=== PATIENT | female | born 1995 | race Caucasian/White ===

== ENCOUNTER 2019-10-21 12:30 | Outpatient (RCR) | payer OTHER, SELFPAY ==
--- NOTE | 2019-10-03 15:30 | OT.OP.EVAL ---
Visit Care Team Role Provider Type Rasheed Castillo Attending Provider Non-Staff Primary Care Provider Specialty: Medical Address: [address] [place] [address], [place], [address] Fax: Email: Occupational Therapy Initial Evaluation OT Outpatient Adult Evaluation Start: 10/15/19 17:10 Freq: Status: Active Protocol: Document 10/03/19 15:30 AMS (Rec: 10/15/19 17:53 AMS [email or web address]) General Information Visit Start Time 13:30 Visit Stop Time 14:18 Total Visit Minutes 48 Plan of Care Dates 10/03/19-11/29/19 Insurance Information - Eval Only Auth Treatment Setting Outpatient Care Note Type Initial Evaluation Referring Physician Rasheed Castillo MD Precautions Reason for referral: 23 y.o. female w/ chronic bilateral hand/wrist pain exacerbated by her work duties. Low suspicion for any bony or ligamentous pathology. Identification Confirmed Yes: Photo ID Previous Therapy/Therapies No History of Therapy N/A for current referral Therapy Pain Assessment When Pain Assessed pre- treat Pain Present Pain Reported Right Hand Scale Used see chart Goals Alf Goals 1. Cara will be modified independent with execution of home exercise program utilizing provided written and visual instructions from therapist. 2. Cara will be able to verbally identify 2 different home management strategies to address presenting symptoms (e .g., contrast baths). Assessment/Plan Patient Response Good Rehabilitation Potential Fair Treatment Assessment Patient is a 23 year-old right hand dominant female referred to outpatient OT by PCP secondary to chronic bilateral hand/wrist pain exacerbated by her work duties with low suspicion for any bony or ligamentous pathology. PMH: Significant for back pain and wisdom teeth removal. 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 Was recommended to take antiinflammatory med. Evaluation findings: Right hand dominant female who presents with pain predominantly of the right hand (5/10 on pain scale relative to right thumb, 4/10 on pain scale relative to radial and ulnar sides of the right wrist) w/ symptoms exacerbated by repetitive gripping and pinching of objects, including active use of personal cell phone; (-) education previously in re: utilization of joint protection principles; (-) use of splint/provision of splint ; pain/discomfort of R thumb w / Inga's Maneuver; (-) prior education re: joint protection principles and/or home management of symptoms utilizing contrast baths, et cetera. Outpatient OT is recommended to address symptoms utilizing conservative methods of treatment; d/t length of time that Cara has endured these symptoms recommend referral back to PCP to explore less conservative approaches to treatment. Home Exercise Program Initiated HEP. Education re: basic joint protection principles completed. Instructed in contrast baths and ice massage to address inflammation. Provided written and visual instructions for thumb ROM, including thumb extensor stretch. Discussed recommendations for splint; Cara to follow-up w/ her PCP. Comment 8 weeks Comment 1 x a week versus 1 x every other week Therapeutic Contents Active Range of Motion, Adaptive Equipment Education, Client Education,Cognitive Skills Development,Functional Activities,Home Exercise Program,Joint Protection, Manual Therapy,Education, Neurodevelopment Treatment, Neuromuscular Re-Education, Self-Care,Splinting,Stretching /Flexibility Activities, Therapeutic Activities, Therapeutic Exercises, Modalities Modalities As Needed,As Prescribed Types of Modalities Contrast Bath,Functional Stimulation (FES),Ice Massage, Iontophoresis,Low Level Laser, T.E.N. Stimulation,TENS Placement/Application, Ultrasound Additional Types of Modalities Heat; paraffin bath Patient Instruction Home Exercise Program,Plan of Care,Questions/Concerns
--- NOTE | 2019-10-10 15:30 | OT.OP.TRT ---
Visit Care Team Role Provider Type Rasheed Castillo Attending Provider Non-Staff Primary Care Provider Specialty: Medical Address: [address] [place] [address], [place], [address] Fax: Email: Occupational Therapy Treatment Note OT Outpatient Treatment Note - Adult Start: 10/15/19 17:10 Freq: Status: Active Protocol: Document 10/10/19 15:30 AMS (Rec: 10/16/19 09:14 AMS [email or web address]) OT Outpatient Adult Treatment Note Session Time Visit Start Time 12:30 Visit Stop Time 13:19 Total Visit Minutes 49 Visit Information Plan of Care Dates 10/03/19-11/29/19 Insurance Information Setting Treatment Setting Outpatient Care Visit Type Note Type Treatment Note General Information General Information Patient is a 23 year-old right hand dominant female referred to outpatient OT by PCP secondary to chronic bilateral hand/wrist pain exacerbated by her work duties with low suspicion for any bony or ligamentous pathology. PMH: Significant for back pain and wisdom teeth removal. 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 Was recommended to take anti inflammatory medication. - Subjective Identification Type Name Identification Reconciled With Medical Record Observations This is the brace that the doctor gave me. I was just wondering about the fit per Cara. Patient/Caregiver Compliance with Home Good Exercise Program - Objective Objective Measurements (+) forearm thumb spica over- the-counter splint provided to patient by PCP. Patient report change in sensation in hand/distal UE with increase of tightness/snugness of fit. [employer] Goals 1. Cara will be modified independent with execution of home exercise program utilizing provided written and visual instructions from therapist. 2. Cara will be able to verbally identify 2 different home management strategies to address presenting symptoms (e .g., contrast baths). - Treatment 2 Descriptor Manual therapy. Gentle massage . 1 Descriptor Ultrasound. 20% duty cycle. 2. 0 w/cm2. x 10 minutes volar radial side of wrist. x 8 minutes to dorsal radial side of right wrist. Address inflammation. Skin intact pre- and post-treatment. (+) patient response to modality use. Exercises 1 Descriptor HEP/POC. HEP reviewed. Discussed and reviewed options for conservative management of the symptoms, including ice massage and contrast baths. Discussed purpose of splint for resting the thumb tendons; discussed potential need to return to PCP w/ referral to UE specialist to explore less conservative options of treatment such as corticoinjection d/t chronic nature of symptoms. Recommended returning to PCP for better fitting splint relative to radial side of hand. Recommended execution of wrist/digit flexor stretch w/ slight UD. Written and visual instructions provided. - Assessment Patient Response to Treatment Good Rehab Potential Fair Assessment of Improvement Poor fitting splint; continued c/o pain/discomfort impacting day-to-day life including caring for young child. Will need to monitor if symptoms reduce w/ conservative methods of treatment over the next few weeks. However, d/t length of time that Cara has endured symptoms recommend referral back to PCP if progress and/or reduction of symptoms does not occur w/ outpatient treatment. Home Exercise Program Please refer to treatment section of note for specific details. - Plan Therapy Recommendations Continue with Current Program, Advance per Rehabilitation Protocol
--- NOTE | 2019-10-21 16:27 | OT.OP.TRT ---
Visit Care Team Role Provider Type Rasheed Castillo Attending Provider Non-Staff Primary Care Provider Specialty: Medical Address: [address] [place] [address], [place], [address] Fax: Email: Occupational Therapy Treatment Note OT Outpatient Treatment Note - Adult Start: 10/15/19 17:10 Freq: Status: Active Protocol: Document 10/21/19 16:15 AMS (Rec: 10/21/19 16:27 AMS [email or web address]) OT Outpatient Adult Treatment Note Session Time Visit Start Time 12:30 Visit Stop Time 13:20 Total Visit Minutes 50 Visit Information Plan of Care Dates 10/03/19-11/29/19 Insurance Information Setting Treatment Setting Outpatient Care Visit Type Note Type Treatment Note General Information General Information Patient is a 23 year-old right hand dominant female referred to outpatient OT by PCP secondary to chronic bilateral hand/wrist pain exacerbated by her work duties with low suspicion for any bony or ligamentous pathology. PMH: Significant for back pain and wisdom teeth removal. 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 Was recommended to take anti inflammatory medication. - Subjective Identification Type Name Identification Reconciled With Medical Record Observations I have an appointment with my doctor in 2 weeks. Unfortunately, I wasn't able to swap out the last splint for a different one per Cara. I have stopped basically doing everything with my hands. Patient/Caregiver Compliance with Home Good Exercise Program - Objective Nursing Home Goals 1. Cara will be modified independent with execution of home exercise program utilizing provided written and visual instructions from therapist. 2. Cara will be able to verbally identify 2 different home management strategies to address presenting symptoms (e .g., contrast baths). - Treatment 2 Descriptor Manual therapy. Gentle massage . 1 Descriptor Ultrasound. 20% duty cycle. 2. 0 w/cm2. x 10 minutes volar radial side of wrist. x 8 minutes to dorsal radial side of right wrist. Address inflammation. Skin intact pre- and post-treatment. (+) patient response to modality use. Exercises 2 Descriptor Distal UE ROM. 1 Descriptor HEP/POC. Recommended that patient follow-up w/ PCP for referral to UE specialist to explore less conservative options of treatment given that there has not been a significant reduction in her pain. Patient reports that she is 'avoiding using her hands' and has been 'resting' her hands, as well as following therapist recommendations ( including contrast baths, gentle massage, ROM). - Assessment Patient Response to Treatment Good Rehab Potential Fair Assessment of Improvement Recommended that patient follow-up w/ PCP to obtain referral to UE specialist to explore less conservative options of treatment given that there has not been a significant reduction in her pain with outpatient treatment . Cara reports that she has been following therapist HEP recommendations (including contrast baths, ROM/stretches) ; yet, she is 'avoiding using her hands' and has been ' resting' her hands as much as possible. Therapist has been unable to progress treatment d /t pain symptoms. Recommend following-up w/ patient post- MD appointment. Home Exercise Program Please refer to treatment section of note for specific details. - Plan Additional Therapy Recommendations Follow-up w/ MD post appt
--- NOTE | 2020-04-21 09:05 | OT.OP.DC ---
Visit Care Team Role Provider Type Rasheed Castillo Attending Provider Non-Staff Primary Care Provider Address: [address] [place] [address], [place], [address] Fax: Email: OT Outpatient OT Outpatient Adult Evaluation Start: 10/15/19 17:10 Freq: Status: Active Protocol: Document 10/03/19 15:30 AMS (Rec: 10/15/19 17:53 AMS [email or web address]) General Information Session Time Visit Start Time 13:30 Visit Stop Time 14:18 Total Visit Minutes 48 Visit Information Plan of Care Dates 10/03/19-11/29/19 Insurance Information - Eval Only Auth Setting Treatment Setting Outpatient Care Visit Type Note Type Initial Evaluation Referral Referring Physician Rasheed Castillo MD Precautions Reason for referral: 23 y.o. female w/ chronic bilateral hand/wrist pain exacerbated by her work duties. Low suspicion for any bony or ligamentous pathology. Identification Identification Confirmed Yes: Photo ID Previous Therapy Previous Therapy/Therapies No History of Therapy N/A for current referral Therapy Pain Assessment Pain When Pain Assessed pre- treat Pain Present Pain Present Pain Reported Location Right Hand Scale Used see chart Goals Assisted Goals Well Service Floor Worker Goals 1. Cara will be modified independent with execution of home exercise program utilizing provided written and visual instructions from therapist. 2. Cara will be able to verbally identify 2 different home management strategies to address presenting symptoms (e .g., contrast baths). Assessment/Plan Assessment Patient Response Good Rehabilitation Potential Fair Treatment Assessment Patient is a 23 year-old right hand dominant female referred to outpatient OT by PCP secondary to chronic bilateral hand/wrist pain exacerbated by her work duties with low suspicion for any bony or ligamentous pathology. PMH: Significant for back pain and wisdom teeth removal. 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 Was recommended to take antiinflammatory med. Evaluation findings: Right hand dominant female who presents with pain predominantly of the right hand (5/10 on pain scale relative to right thumb, 4/10 on pain scale relative to radial and ulnar sides of the right wrist) w/ symptoms exacerbated by repetitive gripping and pinching of objects, including active use of personal cell phone; (-) education previously in re: utilization of joint protection principles; (-) use of splint/provision of splint ; pain/discomfort of R thumb w / Inga's Maneuver; (-) prior education re: joint protection principles and/or home management of symptoms utilizing contrast baths, et cetera. Outpatient OT is recommended to address symptoms utilizing conservative methods of treatment; d/t length of time that Cara has endured these symptoms recommend referral back to PCP to explore less conservative approaches to treatment. Home Exercise Program Initiated HEP. Education re: basic joint protection principles completed. Instructed in contrast baths and ice massage to address inflammation. Provided written and visual instructions for thumb ROM, including thumb extensor stretch. Discussed recommendations for splint; Cara to follow-up w/ her PCP. Plan Comment 8 weeks Comment 1 x a week versus 1 x every other week Therapeutic Contents Active Range of Motion, Adaptive Equipment Education, Client Education,Cognitive Skills Development,Functional Activities,Home Exercise Program,Joint Protection, Manual Therapy,Education, Neurodevelopment Treatment, Neuromuscular Re-Education, Self-Care,Splinting,Stretching /Flexibility Activities, Therapeutic Activities, Therapeutic Exercises, Modalities Modalities As Needed,As Prescribed Types of Modalities Contrast Bath,Functional Stimulation (FES),Ice Massage, Iontophoresis,Low Level Laser, T.E.N. Stimulation,TENS Placement/Application, Ultrasound Additional Types of Modalities Heat; paraffin bath Patient Instruction Home Exercise Program,Plan of Care,Questions/Concerns Sensory Assessment Sensory Profile2 Functional Wrist/Hand Scan Hand Side OT Outpatient Treatment Note - Adult Start: 10/15/19 17:10 Freq: Status: Active Protocol: Document 04/21/20 09:04 [facility] (Rec: 04/21/20 09:05 [facility] [id number]) OT Outpatient Adult Treatment Note Visit Information Plan of Care Dates 10/03/19-11/29/19 Insurance Information [facility] Visit Type Note Type Discharge Summary General Information General Information Patient is a 23 year-old right hand dominant female referred to outpatient OT by PCP secondary to chronic bilateral hand/wrist pain exacerbated by her work duties with low suspicion for any bony or ligamentous pathology. PMH: Significant for back pain and wisdom teeth removal. 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 Was recommended to take anti inflammatory medication. - Subjective Observations Cara has not been seen in the outpatient clinic since ; will complete d/c paperwork and follow-up as appropriate. - - - Assessment Assessment of Improvement Cara has not been seen in the outpatient clinic since ; will complete d/c paperwork and follow-up as appropriate. - Plan Therapy Recommendations Discharge from Occupational Therapy
== END 2020-04-22 14:04 ==
LOC: OT 12:30
PROVIDERS: PCP Family Medicine; Visit Provider Family Medicine
DX: M79.643 Pain in unspecified hand (principal); M25.539 Pain in unspecified wrist
CPT/HCPCS: 97035; 97110; 97140; 97165